=== PATIENT | male | born 1940 | race African-American/Black ===

== ENCOUNTER 2023-10-05 09:17 | Emergency (ER) | payer OTHER, MEDICAID ==
[~2023-10-05] VITALS: Ht 170.2 cm; Wt 55.0 kg
[2023-10-05 09:22] VITALS: O2SAT 96
[2023-10-05] MEDS: SODIUM CHLORIDE 0.9% 500 ML IV ONE (10:24)
[2023-10-05 10:43] LABS: BASOPHILS % 0.2 % (0.0-2.0); EOSINOPHILS % 0.2 % (0.0-5.0); HEMATOCRIT. 31.1 % (42.0-52.0); HEMOGLOBIN. 10.3 g/dL (14.0-18.0); LYMPHOCYTES % 16.6 % (20.0-50.0); MEAN CORPUSCULAR HEMOGLOBIN 29.2 pg (28.0-32.0); MEAN CORPUSCULAR HGB CONC 33.1 g/dL (31.0-37.0); MEAN CORPUSCULAR VOLUME 88.3 fL (80.0-94.0); MEAN PLATELET VOLUME 8.3 fl (7.4-10.4); MONOCYTES % 10.1 % (2.0-8.0); NEUTROPHILS % 72.9 % (40.0-76.0); PLATELET 258 x1000/uL (130-400); RED BLOOD CELL COUNT 3.52 mill/uL (4.7-6.1); WHITE BLOOD COUNT 4.2 x1000/uL (4.5-11.0)
[2023-10-05 10:58] LABS: ALANINE AMINOTRANSFERASE 42 IU/L (10-49); ALBUMIN 3.1 g/dL (3.2-4.8); ASPARTATE AMINOTRANSFERASE 31 IU/L (<34); CALCIUM 8.7 mg/dL (8.7-10.4); CARBON DIOXIDE 27 mEq/L (21-32); CHLORIDE 109 mEq/L (98-107); CREATININE 0.9 mg/dL (0.6-1.3); GLUCOSE 109 mg/dL (70-105); PROTEIN TOTAL 5.7 g/dL (6.0-8.3); SODIUM 144 mEq/L (136-145); UREA NITROGEN BLOOD 9 mg/dL (9-23)
[2023-10-05 11:10] LABS: INR 1.2; PROTHROMBIN TIME 12.9 sec (9.6-11.0)
[2023-10-05 11:16] LABS: POTASSIUM 1.8 mEq/L (3.5-5.1)
[2023-10-05] MEDS ORDERED: KCL 10MEQ/50ML PREMIX 100 ML IV SCH (11:30)
[2023-10-05] MEDS: POTASSIUM CHLORIDE 20MEQ TABLET SR PO ONE (11:43)
[2023-10-05] MEDS: KCL 20MEQ/100ML PREMIX 100 ML IV NR (12:28)
[2023-10-05 14:07] LABS: CALCIUM 7.8 mg/dL (8.7-10.4); CARBON DIOXIDE 26 mEq/L (21-32); CHLORIDE 111 mEq/L (98-107); CREATININE 0.8 mg/dL (0.6-1.3); GLUCOSE 98 mg/dL (70-105); SODIUM 144 mEq/L (136-145); UREA NITROGEN BLOOD 10 mg/dL (9-23)
[2023-10-05 16:30] VITALS: BP 126/54; PULSE 69; RESP 12; TEMP 97.7
== END 2023-10-05 16:38 | disposition short-term general hospital (02) ==
LOC: ER 09:17 → CANBEDREQ 13:13 → ER 16:38
DX: R53.1 Weakness (principal); R19.7 Diarrhea, unspecified; R11.0 Nausea; E78.00 Pure hypercholesterolemia, unspecified; I10 Essential (primary) hypertension; I25.2 Old myocardial infarction; Z20.822 Contact with and (suspected) exposure to COVID-19
CPT/HCPCS: 99285; 74177; 96365; 71045; 96366; 96361; 87426; 80053; 83880; 83605; 83690; 85025; 85610; 36415; 80048; J3480; J7030; C1893